=== PATIENT | male | born 1955 | race Caucasian/White ===

== ENCOUNTER 2017-03-22 10:43 | Inpatient (IN) | payer MEDICARE ==
[2017-03-22] VITALS (11 sets, daily range): BP systolic 104–149; BP diastolic 57–91; BMI 21.1
[~2017-03-22] VITALS: Ht 182.9 cm; Wt 89.0 kg
[2017-03-22] MEDS ORDERED: SODIUM CL 0.91000 ML IV (14:50)
[2017-03-22] MEDS ORDERED: ATIVAN2 MG/ML IV (14:51)
[2017-03-22] MEDS ORDERED: ZYPREXA10 MG PO (14:52)
[2017-03-22] MEDS ORDERED: DEPAKENE250 MG PO (14:54)
[2017-03-22] MEDS ORDERED: TYLENOL650 MG RC (14:55)
[2017-03-22] MEDS ORDERED: BENZTROPINE MESY2 MG PO (14:56)
[2017-03-22] MEDS ORDERED: HALDOL5 MG/ML IM (15:01)
[2017-03-22] MEDS ORDERED: LEVOFLOXAC750 MG/150 IV (15:02)
[2017-03-22] MEDS ORDERED: POTASSIUM10 MEQ/100 IV (15:03)
[2017-03-22] MEDS ORDERED: LOVENOX40 MG/0.4 SC (15:03)
[2017-03-22] MEDS ORDERED: LASIX INJ40 MG/4 ML IV (15:04)
[2017-03-22] MEDS ORDERED: ZOSYN 3.3753.375 G1 IV (15:04)
[2017-03-23] VITALS (24 sets, daily range): BP systolic 99–148; BP diastolic 60–96; BMI 21.0
[2017-03-23 05:49] LABS: BASOPHILS 0 % (0-2); EOSINOPHILS 0 % (0-7); HEMATOCRIT 37.9 % (42.0-54.0); HEMOGLOBIN 12.6 g/dL (13.5-17.5); IMMATURE GRANULOCYTES 0.4 % (0-5); LYMPHOCYTES 8.1 % (15-50); MCHC 33.2 g/dL (31.0-37.0); MCV 87.3 fL (80.0-100.0); MEAN PLATELET VOLUME 11.3 fL (7.4-10.4); MONOCYTES 15.6 % (2-11); NEUTROPHILS 75.9 % (40-80); PLATELET COUNT 217 10x3/uL (130-400); RBC 4.34 10x6/uL (4.20-6.10); RDW 14.1 % (11.5-14.5); WBC 7.9 10x3/uL (4.8-10.8)
[2017-03-23 06:15] LABS: ALBUMIN 2.4 g/dL (3.4-5.0); ALKALINE PHOSPHATASE 50 U/L (46-116); ALT (SGPT) 33 U/L (10-68); BILIRUBIN - TOTAL 0.59 mg/dL (0.2-1.3); CALC OSMOLALITY 293 mosm/kg (275-300); CALCIUM 9.1 mg/dL (8.5-10.1); CHLORIDE - SERUM 109 mmol/L (98-107); CREATININE - SERUM 0.7 mg/dL (0.6-1.3); GLUCOSE 120 mg/dL (74-106); MAGNESIUM - SERUM 2.2 mg/dL (1.8-2.4); PHOSPHOROUS 2.4 mg/dL (2.5-4.9); SODIUM 145 mmol/L (136-145); UREA NITROGEN 24 mg/dL (7-18); eGFR NON AFRICAN AMERICAN > 90 mL/min (90-120)
[2017-03-23 06:24] LABS: POTASSIUM - SERUM 2.8 mmol/L (3.5-5.1)
[2017-03-24] VITALS (12 sets, daily range): BP systolic 119–167; BP diastolic 63–80
[2017-03-24 05:05] LABS: BASOPHILS 0.1 % (0-2); EOSINOPHILS 1.3 % (0-7); HEMATOCRIT 36.2 % (42.0-54.0); IMMATURE GRANULOCYTES 0.8 % (0-5); LYMPHOCYTES 11.7 % (15-50); MCH 29.3 pg (26.0-34.0); MCHC 33.1 g/dL (31.0-37.0); MCV 88.5 fL (80.0-100.0); MEAN PLATELET VOLUME 10.9 fL (7.4-10.4); MONOCYTES 15.5 % (2-11); NEUTROPHILS 70.6 % (40-80); PLATELET COUNT 217 10x3/uL (130-400); RBC 4.09 10x6/uL (4.20-6.10); RDW 14.3 % (11.5-14.5); WBC 7.9 10x3/uL (4.8-10.8)
[2017-03-24 05:47] LABS: CALCIUM 9.1 mg/dL (8.5-10.1); CARBON DIOXIDE 28.3 mmol/L (21.0-32.0); CHLORIDE - SERUM 108 mmol/L (98-107); CREATININE - SERUM 0.7 mg/dL (0.6-1.3); GLUCOSE 127 mg/dL (74-106); MAGNESIUM - SERUM 2.1 mg/dL (1.8-2.4); PHOSPHOROUS 2.5 mg/dL (2.5-4.9); SODIUM 145 mmol/L (136-145); VANCOMYCIN - TROUGH 10.5 ug/mL (10.0-20.0); eGFR NON AFRICAN AMERICAN > 90 mL/min (90-120)
[2017-03-24 05:56] LABS: CALC OSMOLALITY 291 mosm/kg (275-300); POTASSIUM - SERUM 3.5 mmol/L (3.5-5.1); UREA NITROGEN 15 mg/dL (7-18)
[2017-03-24 17:08] LABS: ACID FAST SMEAR Negative (()); AFB SPECIMEN PROCESSING Concentration (())
[2017-03-25 03:00] VITALS: BP 141/73
[2017-03-25 07:00] VITALS: BP 136/67
[2017-03-25 11:00] VITALS: BP 115/64
[2017-03-25 15:00] VITALS: BP 132/64
[2017-03-25 19:00] VITALS: BP 121/71
[2017-03-25 23:00] VITALS: BP 127/60
[2017-03-26 03:00] VITALS: BP 106/67
[2017-03-26 04:23] LABS: BASOPHILS 0.2 % (0-2); EOSINOPHILS 4.7 % (0-7); HEMATOCRIT 37.5 % (42.0-54.0); HEMOGLOBIN 12.4 g/dL (13.5-17.5); IMMATURE GRANULOCYTES 3.5 % (0-5); LYMPHOCYTES 14.9 % (15-50); MCH 28.8 pg (26.0-34.0); MCHC 33.1 g/dL (31.0-37.0); MONOCYTES 12.4 % (2-11); NEUTROPHILS 64.3 % (40-80); PLATELET COUNT 234 10x3/uL (130-400); RBC 4.31 10x6/uL (4.20-6.10); RDW 14.1 % (11.5-14.5); WBC 9.6 10x3/uL (4.8-10.8)
[2017-03-26 04:34] LABS: CALC OSMOLALITY 273 mosm/kg (275-300); CALCIUM 9.1 mg/dL (8.5-10.1); CARBON DIOXIDE 26.9 mmol/L (21.0-32.0); CHLORIDE - SERUM 101 mmol/L (98-107); CREATININE - SERUM 0.7 mg/dL (0.6-1.3); GLUCOSE 117 mg/dL (74-106); SODIUM 137 mmol/L (136-145); eGFR NON AFRICAN AMERICAN > 90 mL/min (90-120)
[2017-03-26 04:37] LABS: UREA NITROGEN 10 mg/dL (7-18)
[2017-03-26 07:00] VITALS: BP 110/68
[2017-03-26 11:00] VITALS: BP 119/62
[2017-03-26 11:12] LABS: FUNGUS STAIN Final report (())
[2017-03-26 16:14] VITALS: BP 117/64
[2017-03-26 19:00] VITALS: BP 139/69
[2017-03-27 04:00] VITALS: BP 114/72
[2017-03-27 06:06] LABS: BASOPHILS 0.2 % (0-2); EOSINOPHILS 3.4 % (0-7); HEMATOCRIT 37.5 % (42.0-54.0); HEMOGLOBIN 12.8 g/dL (13.5-17.5); LYMPHOCYTES 10.9 % (15-50); MCH 29.6 pg (26.0-34.0); MCHC 34.1 g/dL (31.0-37.0); MCV 86.6 fL (80.0-100.0); MEAN PLATELET VOLUME 10.4 fL (7.4-10.4); NEUTROPHILS 67.5 % (40-80); RBC 4.33 10x6/uL (4.20-6.10); RDW 14.4 % (11.5-14.5)
[2017-03-27 06:13] LABS: PLATELET COUNT 288 10x3/uL (130-400); WBC 13.3 10x3/uL (4.8-10.8)
[2017-03-27 06:27] LABS: CALC OSMOLALITY 267 mosm/kg (275-300); CALCIUM 8.8 mg/dL (8.5-10.1); CARBON DIOXIDE 23.1 mmol/L (21.0-32.0); CHLORIDE - SERUM 100 mmol/L (98-107); CREATININE - SERUM 0.7 mg/dL (0.6-1.3); GLUCOSE 105 mg/dL (74-106); POTASSIUM - SERUM 3.3 mmol/L (3.5-5.1); SODIUM 134 mmol/L (136-145); UREA NITROGEN 12 mg/dL (7-18); eGFR NON AFRICAN AMERICAN > 90 mL/min (90-120)
[2017-03-27 08:00] VITALS: BP 99/61
[2017-03-27 13:48] VITALS: BP 109/54
[2017-03-27 17:04] VITALS: BP 102/68
[2017-03-27 20:46] VITALS: BP 123/62
[2017-03-27 23:44] VITALS: BP 105/66
[2017-03-28 04:46] VITALS: BP 117/66
[2017-03-28 09:33] VITALS: BP 110/61
[2017-03-28 13:26] VITALS: BP 109/64
[2017-03-28 19:00] VITALS: BP 115/66
[2017-03-29 04:00] VITALS: BP 116/60
[2017-03-29 08:32] VITALS: BP 99/54
[2017-03-29 12:51] LABS: BASOPHILS 0.2 % (0-2); EOSINOPHILS 1.7 % (0-7); HEMOGLOBIN 11.6 g/dL (13.5-17.5); IMMATURE GRANULOCYTES 3.4 % (0-5); LYMPHOCYTES 11.1 % (15-50); MCH 28.6 pg (26.0-34.0); MCHC 33.1 g/dL (31.0-37.0); MCV 86.4 fL (80.0-100.0); MEAN PLATELET VOLUME 10.1 fL (7.4-10.4); MONOCYTES 12.7 % (2-11); NEUTROPHILS 70.9 % (40-80); PLATELET COUNT 260 10x3/uL (130-400); RBC 4.05 10x6/uL (4.20-6.10); RDW 14.2 % (11.5-14.5); WBC 11.6 10x3/uL (4.8-10.8)
[2017-03-29 13:07] LABS: ALBUMIN 2.2 g/dL (3.4-5.0); ALKALINE PHOSPHATASE 59 U/L (46-116); ALT (SGPT) 60 U/L (10-68); BILIRUBIN - TOTAL 0.52 mg/dL (0.2-1.3); CALC OSMOLALITY 264 mosm/kg (275-300); CALCIUM 8.1 mg/dL (8.5-10.1); CARBON DIOXIDE 21.4 mmol/L (21.0-32.0); CHLORIDE - SERUM 99 mmol/L (98-107); CREATININE - SERUM 0.5 mg/dL (0.6-1.3); GLUCOSE 102 mg/dL (74-106); POTASSIUM - SERUM 3.6 mmol/L (3.5-5.1); PROTEIN - SERUM 4.9 g/dL (6.4-8.2); SODIUM 133 mmol/L (136-145); UREA NITROGEN 10 mg/dL (7-18); eGFR NON AFRICAN AMERICAN > 90 mL/min (90-120)
[2017-03-29 21:52] VITALS: BP 127/60
[2017-03-30 06:17] VITALS: BP 103/59
[2017-03-30 06:56] LABS: ALBUMIN 2.1 g/dL (3.4-5.0); ALKALINE PHOSPHATASE 62 U/L (46-116); ALT (SGPT) 57 U/L (10-68); CALC OSMOLALITY 264 mosm/kg (275-300); CALCIUM 8.2 mg/dL (8.5-10.1); CARBON DIOXIDE 22.6 mmol/L (21.0-32.0); CHLORIDE - SERUM 100 mmol/L (98-107); CREATININE - SERUM 0.6 mg/dL (0.6-1.3); GLUCOSE 100 mg/dL (74-106); MAGNESIUM - SERUM 1.7 mg/dL (1.8-2.4); PHOSPHOROUS 2.9 mg/dL (2.5-4.9); POTASSIUM - SERUM 3.2 mmol/L (3.5-5.1); PROTEIN - SERUM 5.4 g/dL (6.4-8.2); SODIUM 133 mmol/L (136-145); UREA NITROGEN 11 mg/dL (7-18); eGFR NON AFRICAN AMERICAN > 90 mL/min (90-120)
[2017-03-30 07:19] LABS: BASOPHILS 0.1 % (0-2); HEMATOCRIT 34.7 % (42.0-54.0); HEMOGLOBIN 11.5 g/dL (13.5-17.5); IMMATURE GRANULOCYTES 1.5 % (0-5); LYMPHOCYTES 7.6 % (15-50); MCH 28.6 pg (26.0-34.0); MCHC 33.1 g/dL (31.0-37.0); MCV 86.3 fL (80.0-100.0); MEAN PLATELET VOLUME 10.7 fL (7.4-10.4); MONOCYTES 14.2 % (2-11); NEUTROPHILS 75.6 % (40-80); PLATELET COUNT 294 10x3/uL (130-400); RBC 4.02 10x6/uL (4.20-6.10); RDW 14.2 % (11.5-14.5); WBC 13.8 10x3/uL (4.8-10.8)
[2017-03-30 08:49] VITALS: BP 120/64
[2017-03-30 12:29] VITALS: BP 103/52
[2017-03-30 15:20] LABS: FUNGUS CULTURE RESULT 1 Candida albicans (())
[2017-03-30 16:03] VITALS: Ht 182.9 cm; Wt 89.0 kg
[2017-03-30 17:00] VITALS: BP 101/53
[2017-03-30 20:30] VITALS: BP 119/58
[2017-03-31] VITALS: BP 105/63
[2017-03-31 06:21] VITALS: BP 117/67
[2017-03-31 07:20] LABS: BASOPHILS 0.1 % (0-2); EOSINOPHILS 0.9 % (0-7); HEMOGLOBIN 11.8 g/dL (13.5-17.5); IMMATURE GRANULOCYTES 0.8 % (0-5); LYMPHOCYTES 7.8 % (15-50); MCH 28.3 pg (26.0-34.0); MCHC 32.8 g/dL (31.0-37.0); MCV 86.3 fL (80.0-100.0); MEAN PLATELET VOLUME 10.3 fL (7.4-10.4); MONOCYTES 11.4 % (2-11); PLATELET COUNT 327 10x3/uL (130-400); RBC 4.17 10x6/uL (4.20-6.10); RDW 14.1 % (11.5-14.5); WBC 14.2 10x3/uL (4.8-10.8)
[2017-03-31 07:38] LABS: ALBUMIN 2.2 g/dL (3.4-5.0); ALKALINE PHOSPHATASE 60 U/L (46-116); ALT (SGPT) 52 U/L (10-68); BILIRUBIN - TOTAL 0.51 mg/dL (0.2-1.3); CALC OSMOLALITY 269 mosm/kg (275-300); CALCIUM 8.7 mg/dL (8.5-10.1); CHLORIDE - SERUM 99 mmol/L (98-107); CREATININE - SERUM 0.7 mg/dL (0.6-1.3); GLUCOSE 123 mg/dL (74-106); POTASSIUM - SERUM 3.2 mmol/L (3.5-5.1); PROTEIN - SERUM 5.4 g/dL (6.4-8.2); SODIUM 135 mmol/L (136-145); UREA NITROGEN 11 mg/dL (7-18); eGFR NON AFRICAN AMERICAN > 90 mL/min (90-120)
[2017-03-31 07:39] LABS: CARBON DIOXIDE 12.4 mmol/L (21.0-32.0)
[2017-03-31 08:07] VITALS: BP 121/65
[2017-03-31 12:25] VITALS: BP 105/61
[2017-03-31 17:29] VITALS: BP 110/51
[2017-03-31 21:16] VITALS: BP 107/62
[2017-04-01 01:23] VITALS: BP 97/55
[2017-04-01 05:26] LABS: BASOPHILS 0.1 % (0-2); EOSINOPHILS 1.6 % (0-7); HEMATOCRIT 35.2 % (42.0-54.0); HEMOGLOBIN 11.3 g/dL (13.5-17.5); IMMATURE GRANULOCYTES 0.7 % (0-5); LYMPHOCYTES 9.7 % (15-50); MCHC 32.1 g/dL (31.0-37.0); MCV 87.1 fL (80.0-100.0); MEAN PLATELET VOLUME 9.9 fL (7.4-10.4); MONOCYTES 10.4 % (2-11); NEUTROPHILS 77.5 % (40-80); PLATELET COUNT 318 10x3/uL (130-400); RBC 4.04 10x6/uL (4.20-6.10); RDW 14.2 % (11.5-14.5)
[2017-04-01 05:36] LABS: WBC 10.2 10x3/uL (4.8-10.8)
[2017-04-01 05:54] LABS: ALBUMIN 2.1 g/dL (3.4-5.0); ALKALINE PHOSPHATASE 59 U/L (46-116); ALT (SGPT) 57 U/L (10-68); CALCIUM 8.4 mg/dL (8.5-10.1); CHLORIDE - SERUM 102 mmol/L (98-107); CREATININE - SERUM 0.6 mg/dL (0.6-1.3); GLUCOSE 101 mg/dL (74-106); PROTEIN - SERUM 5.3 g/dL (6.4-8.2); SODIUM 137 mmol/L (136-145); eGFR NON AFRICAN AMERICAN > 90 mL/min (90-120)
[2017-04-01 05:58] VITALS: BP 109/54
[2017-04-01 06:00] LABS: CALC OSMOLALITY 271 mosm/kg (275-300); CARBON DIOXIDE 27.2 mmol/L (21.0-32.0); UREA NITROGEN 7 mg/dL (7-18)
[2017-04-01 08:11] VITALS: BP 103/63
[2017-04-01 11:46] VITALS: BP 127/58
[2017-04-01 16:18] VITALS: BP 108/60
[2017-04-01 21:39] VITALS: BP 140/70
[2017-04-02 00:54] VITALS: BP 122/64
[2017-04-02 04:29] LABS: BASOPHILS 0.2 % (0-2); EOSINOPHILS 1.9 % (0-7); HEMATOCRIT 36.2 % (42.0-54.0); HEMOGLOBIN 11.7 g/dL (13.5-17.5); IMMATURE GRANULOCYTES 0.5 % (0-5); LYMPHOCYTES 9.6 % (15-50); MCH 28.3 pg (26.0-34.0); MCHC 32.3 g/dL (31.0-37.0); MCV 87.4 fL (80.0-100.0); MEAN PLATELET VOLUME 10.3 fL (7.4-10.4); MONOCYTES 8.3 % (2-11); NEUTROPHILS 79.5 % (40-80); PLATELET COUNT 359 10x3/uL (130-400); RBC 4.14 10x6/uL (4.20-6.10); WBC 9.5 10x3/uL (4.8-10.8)
[2017-04-02 04:51] LABS: ALBUMIN 2.3 g/dL (3.4-5.0); ALKALINE PHOSPHATASE 61 U/L (46-116); ALT (SGPT) 61 U/L (10-68); CALCIUM 8.5 mg/dL (8.5-10.1); CARBON DIOXIDE 28.5 mmol/L (21.0-32.0); CHLORIDE - SERUM 102 mmol/L (98-107); CREATININE - SERUM 0.6 mg/dL (0.6-1.3); GLUCOSE 102 mg/dL (74-106); PROTEIN - SERUM 5.5 g/dL (6.4-8.2); SODIUM 138 mmol/L (136-145); eGFR NON AFRICAN AMERICAN > 90 mL/min (90-120)
[2017-04-02 05:00] LABS: CALC OSMOLALITY 272 mosm/kg (275-300); UREA NITROGEN 5 mg/dL (7-18)
[2017-04-02 06:02] VITALS: BP 124/70
[2017-04-02 09:46] VITALS: BP 125/69
[2017-04-02 16:29] VITALS: BP 116/69
[2017-04-02 19:00] VITALS: BP 121/75
[2017-04-03] VITALS: BP 116/65
[2017-04-03 05:43] LABS: BASOPHILS 0.2 % (0-2); EOSINOPHILS 0.8 % (0-7); HEMATOCRIT 37.7 % (42.0-54.0); HEMOGLOBIN 12.1 g/dL (13.5-17.5); IMMATURE GRANULOCYTES 0.5 % (0-5); LYMPHOCYTES 8.1 % (15-50); MCH 28.5 pg (26.0-34.0); MCHC 32.1 g/dL (31.0-37.0); MCV 88.7 fL (80.0-100.0); MONOCYTES 8.3 % (2-11); NEUTROPHILS 82.1 % (40-80); PLATELET COUNT 393 10x3/uL (130-400); RBC 4.25 10x6/uL (4.20-6.10); RDW 14.4 % (11.5-14.5); WBC 10.9 10x3/uL (4.8-10.8)
[2017-04-03 06:16] LABS: ALBUMIN 2.4 g/dL (3.4-5.0); ANION GAP 13.8 mmol/L (8-16); BILIRUBIN - TOTAL 0.52 mg/dL (0.2-1.3); CALCIUM 9.2 mg/dL (8.5-10.1); CARBON DIOXIDE 26.9 mmol/L (21.0-32.0); PROTEIN - SERUM 5.8 g/dL (6.4-8.2)
[2017-04-03 06:17] LABS: CREATININE - SERUM 1.2 mg/dL (0.6-1.3); POTASSIUM - SERUM 3.7 mmol/L (3.5-5.1)
[2017-04-03 08:43] VITALS: BP 120/63
[2017-04-03 12:11] VITALS: BP 132/65
[2017-04-03 17:50] VITALS: BP 125/63
[2017-04-03 22:14] VITALS: BP 120/57
[2017-04-04 01:10] VITALS: BP 113/68
[2017-04-04 04:48] LABS: BASOPHILS 0.1 % (0-2); EOSINOPHILS 0.6 % (0-7); HEMATOCRIT 38.9 % (42.0-54.0); HEMOGLOBIN 12.5 g/dL (13.5-17.5); IMMATURE GRANULOCYTES 0.7 % (0-5); LYMPHOCYTES 7.4 % (15-50); MCH 28.3 pg (26.0-34.0); MCHC 32.1 g/dL (31.0-37.0); MCV 88.2 fL (80.0-100.0); MEAN PLATELET VOLUME 10.2 fL (7.4-10.4); MONOCYTES 6.5 % (2-11); NEUTROPHILS 84.7 % (40-80); PLATELET COUNT 432 10x3/uL (130-400); RBC 4.41 10x6/uL (4.20-6.10); RDW 14.6 % (11.5-14.5)
[2017-04-04 05:07] VITALS: BP 126/60
[2017-04-04 05:08] LABS: ANION GAP 15.2 mmol/L (8-16); CALCIUM 8.9 mg/dL (8.5-10.1); CARBON DIOXIDE 25.3 mmol/L (21.0-32.0); CREATININE - SERUM 1.5 mg/dL (0.6-1.3); POTASSIUM - SERUM 3.5 mmol/L (3.5-5.1); VANCOMYCIN - RANDOM 24.8 ug/mL (10.0-20.0)
[2017-04-04 05:22] LABS: WBC 13.8 10x3/uL (4.8-10.8)
[2017-04-04 08:19] VITALS: BP 98/55
[2017-04-04 12:21] VITALS: BP 110/56
[2017-04-19 11:21] LABS: FUNGUS MYCOLOGY CULTURE Final report (())
== END 2017-04-04 16:03 | DRG 871 ==
LOC: D.ICU 10:43 → D.M2 13:22 → D.ICU 13:22 → D.M2 03-26 13:16
PROVIDERS: Emergency Medicine; Internal Medicine Nephrology; Internal Medicine Pulmonary Disease
PROC: 0BDB8ZX Extraction of Left Lower Lobe Bronchus, Via Natural or Artificial Opening Endoscopic, Diagnostic (ICD-10-PCS; principal; 2017-03-22)
PROC: 0BD68ZX Extraction of Right Lower Lobe Bronchus, Via Natural or Artificial Opening Endoscopic, Diagnostic (ICD-10-PCS; 2017-03-22)
DX: A41.9 Sepsis, unspecified organism (principal); J69.0 Pneumonitis due to inhalation of food and vomit; J15.211 Pneumonia due to Methicillin susceptible Staphylococcus aureus; B37.1 Pulmonary candidiasis; J96.01 Acute respiratory failure with hypoxia; N39.0 Urinary tract infection, site not specified; T17.590A Other foreign object in bronchus causing asphyxiation, initial encounter; J98.11 Atelectasis; D64.9 Anemia, unspecified; E87.6 Hypokalemia; Z66 Do not resuscitate; L89.151 Pressure ulcer of sacral region, stage 1; F20.9 Schizophrenia, unspecified; F32.9 Major depressive disorder, single episode, unspecified; I10 Essential (primary) hypertension; K56.41 Fecal impaction